=== PATIENT | male | born 1955 | race Caucasian/White ===

== ENCOUNTER 2018-04-13 13:36 | Emergency (ER) | payer BC ==
[~2018-04-13] VITALS: Ht 177.8 cm; Wt 120.7 kg
[2018-04-13 13:41] VITALS: BP_SYST 158
--- NOTE | 2018-04-13 13:49 | NUR ---
Patient to ER bed 02 for evaluation. Side rails up. Report given to darien.
--- NOTE | 2018-04-13 13:50 | NUR ---
Pt brought by self , A&Ox4, pt presents to ER with toothache 04/23, pt states he was sent from his PCP to get antibiotics due to swelling and possible infection.
[2018-04-13] MEDS ORDERED: PIPERACILLIN/TAZO 3.375 GM in NS 50 ML IV ONE (14:00)
--- NOTE | 2018-04-13 14:00 | NUR ---
Dr Garcia at bedside examining patient
[2018-04-13] MEDS ORDERED: PIPERACILLIN/TAZOBACTAM 3.375 GM/VIAL (ZOSYN) IV ONE ×2 (14:09→14:47)
--- NOTE | 2018-04-13 14:30 | NUR ---
Patient in bed, stated he feels pressure in iv site. I noticed iv site swollen, stopped infuion. Notified Dr. lopez re: IV site sweling. started a new IV site and administered abx.
[2018-04-13 14:41] LABS: CALCIUM 9.3 mg/dL (8.4-11.0); CREATININE 0.69 mg/dL (0.55-1.30)
[2018-04-13 14:46] LABS: BASOPHILS % (AUTO) 0.5 % (0.0-2.0); EOSINOPHILS # (AUTO) 0.1 K/uL (0.0-0.4); EOSINOPHILS % (AUTO) 1.4 % (0.0-4.0); HEMATOCRIT 40.2 % (36-54); HEMOGLOBIN 13.4 g/dL (14.0-18.0); LYMPHOCYTES # (AUTO) 1.8 K/uL (1.0-5.5); LYMPHOCYTES % (AUTO) 18.5 % (20.5-51.5); MEAN CORPUSCULAR HEMOGLOBIN 30 pg (27-31); MEAN CORPUSCULAR HGB CONC 33 % (32-36); MEAN CORPUSCULAR VOLUME 90 fL (79.0-98.0); MONOCYTES % (AUTO) 9.7 % (1.7-9.3); NEUTROPHILS % (AUTO) 69.9 % (40.0-70.0); PLATELET COUNT (AUTO) 286 K/uL (130-430); RED BLOOD CELL COUNT(AUTO) 4.47 MIL/uL (4.2-6.2); RED CELL DISTRIBUTION WIDTH 11.8 % (9.0-15.0); WHITE BLOOD COUNT (AUTO) 9.9 K/uL (4.8-10.8)
[2018-04-13 14:47] LABS: ALBUMIN 3.5 g/dL (3.4-4.8); TOTAL BILIRUBIN 1.5 mg/dL (0.0-1.0)
--- NOTE | 2018-04-13 15:30 | NUR ---
Patient awake & alert x4, resing in bed. ABX complete
[2018-04-13 15:50] VITALS: BP_SYST 148
--- NOTE | 2018-04-13 15:51 | NUR ---
Patient given written and verbal discharge instructions and verbalizes understanding. ER MD discussed with patient the results and treatment provided. Patient in stable condition. ID arm band removed. IV catheter removed intact and dressing applied, no active bleeding. No Rx given. Patient educated on pain management and to follow up with PMD. Pain Scale 3/10 tolerable for patient . Opportunity for questions provided and answered. Medication side effect fact sheet provided.
== END 2018-04-13 15:50 | disposition home or self-care (01) ==
LOC: SED 13:36
DX: K04.7 Periapical abscess without sinus (principal); I10 Essential (primary) hypertension
CPT/HCPCS: 36415; 80053; 83605; 85025; 87040; 96365; 99283; J2543